=== PATIENT | male | born 1945 | race Caucasian/White ===

== ENCOUNTER 2017-07-24 15:39 | Emergency (ER) | payer MEDICARE, BC ==
--- NOTE | 2017-07-24 17:24 | EDM.PDOC ---
Scribed by Rebecca Orellana 07/24/17 1724 for Drew Whitaker MD ED HPI GENERAL MEDICAL PROBLEM - General Chief Complaint: Upper Extremity Injury/Pain Stated Complaint: TRIPPED SPRAINED WRIST? [phone] Time Seen by Provider: 07/24/17 16:00 Source of Information: Reports: Patient, RN, RN Notes Reviewed History Limitations: Reports: No Limitations - History of Present Illness INITIAL COMMENTS - FREE TEXT/NARRATIVE: Patient presented to ER with complaint of right wrist pain sustained one hour to arrival from a ground level fall. He has a bruise to the right anterior thigh , but states that it is not particularly painful and does not affect his ability to walk. Patient states he presents to the ER solely for evaluation of his wrist. Onset: Today Location: Reports: Upper Extremity, Right Quality: Reports: Ache Severity: Moderate Improves with: Reports: None Worsens with: Reports: None Associated Symptoms: Reports: No Other Symptoms - Related Data Allergies Allergy/AdvReac Type Severity Reaction Status Date / Time No Known Allergies Allergy Verified 07/24/17 15:46 Home Meds: Home Meds . [Unable to Verify Home Med List] 07/24/17 [History] Past Medical History HEENT History: Reports: Hard of Hearing, Impaired Vision Other HEENT History: Wears glasses and hearing aides Cardiovascular History: Reports: Hypertension, [place], Pacemaker Other Cardiovascular History: maker [place] 1996 that made him need a transplant Respiratory History: Reports: Other (See Below) Other Respiratory History: maybe some sleep apnea Gastrointestinal History: Reports: None Genitourinary History: Reports: Chronic Renal Insuffiency Other Genitourinary History: Creatinine runs around 1.7 Musculoskeletal History: Reports: Osteoarthritis Other Musculoskeletal History: L5 arthritis Neurological History: Reports: None Psychiatric History: Reports: None Endocrine/Metabolic History: Reports: Diabetes, Type II Hematologic History: Reports: Anemia, Iron Deficiency Immunologic History: Reports: None Oncologic (Cancer) History: Reports: Basal Cell Carcinoma, Squamous Cell Carcinoma Dermatologic History: Reports: None - Past Surgical History Cardiovascular Surgical History: Reports: Other (See Below) Other Cardiovascular Surgeries/Procedures: heart transplant 2008. Had one bout of rejection initially but all going well now. GI Surgical History: Reports: Hernia, Inguinal Other GI Surgeries/Procedures: left inquinal repair. Musculoskeletal Surgical History: Reports: None Review of Systems - Review of Systems Review Of Systems: ROS reveals no pertinent complaints other than HPI. ED EXAM, GENERAL - Physical Exam Exam: See Below Exam Limited By: No Limitations General Appearance: Alert, WD/WN, No Apparent Distress Eye Exam: Bilateral Eye: Normal Inspection Nose: Normal Inspection Head: Normocephalic, Other (small superficial abrasion right forehead.) Neck: Normal Inspection, Supple, Non-Tender, Full Range of Motion Respiratory/Chest: No Respiratory Distress Peripheral Pulses: 3+: Radial (L), Radial (R) Extremities: Normal Range of Motion, Other (5cm x 6cm slightly tender bruise to right proximal anterior thigh. Skin is intact. ) Neurological: Alert, Oriented, CN II-XII Intact, Normal Cognition, Normal Gait, No Motor/Sensory Deficits Psychiatric: Normal Affect, Normal Mood Skin Exam: Warm, Dry Course - Vital Signs Last Recorded V/S: Last Vital Signs Temp 36.8 C 07/24/17 15:44 Pulse 85 07/24/17 15:44 Resp 18 07/24/17 15:44 BP 143/83 H 07/24/17 15:44 Pulse Ox 96 07/24/17 15:44 - Radiology Interpretation Free Text/Narrative:: Right wrist: No acute findings. See rad report. - Re-Assessments/Exams Free Text/Narrative Re-Assessment/Exam: 07/24/17 17:22 Patient was found to have a superficial abrasion to the right forehead. He was informed that because he takes a baby aspirin that we would convert him to a trauma chart and perform a head scan. Patient states he bairly scraped his forehead and is not here for trauma or to have his forehead abrasion evaluated. Patient states that if he had not hurt his wrist he would not have come to the ER for his other minor injuries. Departure - Departure Time of Disposition: 17:16 Disposition: Home, Self-Care 01 Condition: Good Clinical Impression: Right wrist sprain Qualifiers: Encounter type: initial encounter Qualified Code(s): S63.501A - Unspecified sprain of right wrist, initial encounter Contusion of right wrist Qualifiers: Encounter type: initial encounter Qualified Code(s): S60.211A - Contusion of right wrist, initial encounter Contusion of right thigh Qualifiers: Encounter type: initial encounter Qualified Code(s): S70.11XA - Contusion of right thigh, initial encounter Forehead abrasion Qualifiers: Encounter type: initial encounter Qualified Code(s): S00.81XA - Abrasion of other part of head, initial encounter - Discharge Information Instructions: Abrasion, Contusion, [id number], Wrist Sprain, Adult Forms: ED Department Discharge Additional Instructions: Wear right wrist splint as needed for comfort for 5 to 7 days. Rest and elevate right wrist. Ice packto right wrist and right thigh contusion as needed for comfort. May use [id number] antibiotic ointment to forehead abrasion. Follow directions on package. Follow up in clinic with your primary doctor in 7 to 10 days as expected. I have read and agree with the documentation that has been completed regarding this visit. By signing this record, I attest that the documentation was completed in my physical presence and is an accurate record of the encounter.
== END 2017-07-24 17:41 | disposition home or self-care (01) ==
LOC: DL.ED 15:39
DX: S63.501A Unspecified sprain of right wrist, initial encounter (principal); S60.211A Contusion of right wrist, initial encounter; S70.11XA Contusion of right thigh, initial encounter; S00.81XA Abrasion of other part of head, initial encounter; I12.9 Hypertensive chronic kidney disease with stage 1 through stage 4 chronic kidney disease, or unspecified chronic kidney disease; E11.22 Type 2 diabetes mellitus with diabetic chronic kidney disease; N18.9 Chronic kidney disease, unspecified; W19.XXXA Unspecified fall, initial encounter
CPT/HCPCS: 73110-RT; 99283